=== PATIENT | male | born 1995 | race Caucasian/White ===

== ENCOUNTER 2017-03-12 10:16 | Emergency (ER) | payer BC, OTHER ==
[~2017-03-12] VITALS: Ht 177.8 cm; Wt 85.0 kg
[~2017-03-12 10:16] MED LIST: AMOX250C3 PO; BUPR-79 PO; DOXY100C76 PO; ESCI10TA17 PO
[2017-03-12 10:20] VITALS: TEMP 36.6; Ht 177.8 cm; Wt 85.0 kg
[2017-03-12] MEDS ORDERED: MINO75CA2 PO (10:51)
[2017-03-12] MEDS ORDERED: SODIUM CHLORIDE 0.9% 1000ML 1,000 ML IV STA (11:09)
--- NOTE | 2017-03-12 11:18 | DIAGNOSTIC IMAGING REPORT ---
CHEST ONE VIEW PORTABLE CLINICAL HISTORY: Hematemesis. COMPARISON STUDY: Chest radiograph July 21, 2015. FINDINGS: Lung volumes are normal. No pneumothorax or pleural effusion is present. There is no evidence of pneumomediastinum. Cardiomediastinal silhouette is normal. Lungs are clear. There is no evidence of pulmonary edema. IMPRESSION: No acute cardiopulmonary findings. Electronically signed by: Jameson Olea M.D. 03/12/2017 11:16 AM Dictated Date/Time: 03/12/2017 11:15 AM
[2017-03-12 11:32] LABS: BASO % 0.6 %; BASO ABS # 0.04 K/uL (0-0.2); COMPLETE YES; EOS % 2.2 %; IG% 0.9 %; LYMPH % 28.3 %; LYMPH ABS # 1.79 K/uL (1.2-3.4); MEAN CELL VOLUME 87.9 fL (80-100); MEAN CORPUSCULAR HEMOGLOBIN 28.9 pg (25-34); MEAN CORPUSCULAR HGB CONC 32.9 g/dl (32-36); MEAN PLATELET VOLUME 10.4 fL (7.4-10.4); MONO % 6.3 %; NEUT % 61.7 %; PLATELET COUNT 256 K/uL (130-400); RED BLOOD COUNT 5.12 M/uL (4.7-6.1); WHITE BLOOD COUNT 6.32 K/uL (4.8-10.8)
[2017-03-12 11:49] LABS: CALCIUM 9.1 mg/dl (8.5-10.1); CREATININE 0.79 mg/dl (0.60-1.40)
[2017-03-12 11:52] LABS: ALB/GLOB RATIO 1.2 (0.9-2)
[2017-03-12] MEDS ORDERED: OMEP40CA41 PO (13:05)
--- NOTE | 2017-03-12 13:06 | EMERGENCY ROOM VISIT NOTE ---
History First contact with patient: 10:26 Chief Complaint: ABDOMINAL PAIN Stated Complaint: ABD PAIN WHEN CONSUMING ALCOHOL,DIZZY,VOMIT BLOOD Nursing Triage Summary: pt reports "I was drinking last night and after I threw up there was blood streaks in it". Pt reports I have had pain in my stomache after drinking X 1 year and it goes away pretty quickly" History of Present Illness The patient is a 22 year old male who presents to the Emergency Room with complaints of blood-streaked vomit last night. The patient states that he had 3 -4 shots of vodka last night. He reports he then developed some periumbilical abdominal pain. The patient made himself vomit and states that the vomit was streaked with a small amount of bright red blood. He has had no vomiting since then. He has had no hemoptysis. The patient states that typically when he drinks alcohol, he does develop some abdominal discomfort which goes away on its own. He denies any similar symptoms with other foods. He does state he has felt slightly lightheaded over the past week. He denies any history of abdominal issues or abdominal surgery. He denies any complaints at this time. Review of Systems A complete 10 point review of systems was reviewed with the patient with pertinent positives and negatives as per history of present illness. All else were negative. Social History Smoking Status: Never Smoker Alcohol Use: occasionally Drug Use: none Marital Status: single Housing Status: lives alone Occupation Status: [employer] student Current/Historical Medications Scheduled Bupropion (Wellbutrin Sr), 150 MG PO DAILY Escitalopram (Lexapro), 30 MG PO DAILY Minocycline (Minocin), Unknown Dose PO DAILY Omeprazole (Prilosec), 40 MG PO DAILY Physical Exam Vital Signs Date Time Temp Pulse Resp B/P (MAP) Pulse Ox O2 Delivery O2 Flow Rate FiO2 03/12/17 13:25 68 15 131/79 98 03/12/17 11:33 71 15 139/67 100 03/12/17 11:33 68 20 109/60 98 70 135/66 70 139/67 03/12/17 10:20 36.6 77 18 127/59 100 Room Air Physical Exam VITALS: Vitals are noted on the nurse's note and reviewed by myself. Vital signs stable. GENERAL: This is a 22-year-old male, in no acute distress, nondiaphoretic, well- developed well-nourished. SKIN: The skin was without rashes, erythema, edema, or bruising. EARS: External auditory canals clear, tympanic membranes pearly amlhotra without erythema or effusion bilaterally. EYES: Pupils equal round and reactive to light and accommodation. Conjunctivae without injection, sclerae without icterus. MOUTH: Mucous membranes moist. Tonsils are not enlarged. Posterior oropharynx is minimally injected. NECK: Supple without nuchal rigidity. No lymphadenopathy. HEART: Regular rate and rhythm without murmurs gallops or rubs. LUNGS: Clear to auscultation bilaterally without wheezes, rales or rhonchi. ABDOMEN: Positive bowel sounds x 4. Soft, nontender, without masses or organomegaly. NEURO: Patient was alert and oriented to person place and time. Medical Decision & Procedures ER Provider Diagnostic Interpretation: CHEST ONE VIEW PORTABLE CLINICAL HISTORY: Hematemesis. COMPARISON STUDY: Chest radiograph July 21, 2015. FINDINGS: Lung volumes are normal. No pneumothorax or pleural effusion is present. There is no evidence of pneumomediastinum. Cardiomediastinal silhouette is normal. Lungs are clear. There is no evidence of pulmonary edema. IMPRESSION: No acute cardiopulmonary findings. Laboratory Results 03/12/17 11:22 Red Blood Count 5.12, Mean Corpuscular Volume 87.9, Mean Corpuscular Hemoglobin 28.9, Mean Corpuscular Hemoglobin Concent 32.9, Mean Platelet Volume 10.4, Neutrophils (%) (Auto) 61.7, Lymphocytes (%) (Auto) 28.3, Monocytes (%) (Auto) 6.3, Eosinophils (%) (Auto) 2.2, Basophils (%) (Auto) 0.6, Neutrophils # (Auto) 3.89, Lymphocytes # (Auto) 1.79, Monocytes # (Auto) 0.40, Eosinophils # (Auto) 0.14, Basophils # (Auto) 0.04 03/12/17 11:22 Test 03/12/17 11:22 White Blood Count 6.32 K/uL (4.8-10.8) Red Blood Count 5.12 M/uL (4.7-6.1) Hemoglobin 14.8 g/dL (14.0-18.0) Hematocrit 45.0 % (42-52) Mean Corpuscular Volume 87.9 fL (80-100) Mean Corpuscular Hemoglobin 28.9 pg (25-34) Mean Corpuscular Hemoglobin Concent 32.9 g/dl (32-36) Platelet Count 256 K/uL (130-400) Mean Platelet Volume 10.4 fL (7.4-10.4) Neutrophils (%) (Auto) 61.7 % Lymphocytes (%) (Auto) 28.3 % Monocytes (%) (Auto) 6.3 % Eosinophils (%) (Auto) 2.2 % Basophils (%) (Auto) 0.6 % Neutrophils # (Auto) 3.89 K/uL (1.4-6.5) Lymphocytes # (Auto) 1.79 K/uL (1.2-3.4) Monocytes # (Auto) 0.40 K/uL (0.11-0.59) Eosinophils # (Auto) 0.14 K/uL (0-0.5) Basophils # (Auto) 0.04 K/uL (0-0.2) RDW Standard Deviation 40.8 fL (36.4-46.3) RDW Coefficient of Variation 12.7 % (11.5-14.5) Immature Granulocyte % (Auto) 0.9 % Immature Granulocyte # (Auto) 0.06 K/uL (0.00-0.02) Anion Gap 3.0 mmol/L (3-11) Est Creatinine Clear Calc Drug Dose 152.7 ml/min Estimated GFR () 148.8 Estimated GFR (Non- 128.4 BUN/Creatinine Ratio 23.0 (10-20) Calcium Level 9.1 mg/dl (8.5-10.1) Total Bilirubin 0.3 mg/dl (0.2-1) Aspartate Amino Transf (AST/SGOT) 16 U/L (15-37) Alanine Aminotransferase (ALT/SGPT) 21 U/L (12-78) Alkaline Phosphatase 58 U/L (45-117) Total Protein 7.4 gm/dl (6.4-8.2) Albumin 4.0 gm/dl (3.4-5.0) Globulin 3.4 gm/dl (2.5-4.0) Albumin/Globulin Ratio 1.2 (0.9-2) Lipase 112 U/L (73-393) Medications Administered Medications (Trade) Dose Ordered Sig/Renee Route Start Time Stop Time Status Last Admin Dose Admin Sodium Chloride 1,000 ml @ 999 mls/hr Q1H1M STAT IV 03/12/17 11:09 03/12/17 12:09 DC 03/12/17 11:37 999 MLS/HR Medical Decision Differential diagnosis includes Iraida-Calvert tear, Boerhaave syndrome, gastritis, gastroenteritis, appendicitis, cholecystitis, among others. Patient was evaluated as above. He is very well-appearing at this time and has no complaints. He presents due to a small amount of blood in his vomit last night. He has had no further vomiting or nausea since then. The patient also concerned because he states that every time he drinks alcohol, he develops abdominal pain. Chest x-ray and labs today were unremarkable. There is no leukocytosis or anemia. The patient has no abdominal tenderness on exam. I did recommend that he stop or decrease his alcohol use. He was recommended to start a Prilosec and follow-up with [facility] for further evaluation. The patient was agreeable to this. He verbalized understanding of my assessment and treatment plan and was discharged home in good condition. Medication Reconcilliation Current Medication List: was personally reviewed by me Blood Pressure Screening Patient's blood pressure: Normal blood pressure Impression Primary Impression: Vomiting Departure Information Dispostion Home / Self-Care Condition GOOD Prescriptions Omeprazole (PRILOSEC) 40 Mg Cap 40 MG PO DAILY for 14 Days, #14 CAP Prov: Ute Chavez .KEITH 03/12/17 Referrals No Doctor, Assigned (PCP) Patient Instructions [facility] Additional Instructions Take the prilosec as prescribed. Rest and plenty of fluids. Follow-up with [facility] or your own primary care provider for further evaluation next week. Return to the emergency department with any worsening pain, worsening vomiting, recurrent blood in the vomit or any other new/concerning symptoms.
[2017-03-12 13:25] VITALS: BP 131/79; PULSE 68; O2SAT 98
== END 2017-03-12 13:38 | disposition home or self-care (01) ==
LOC: C.EDB 10:19 → C.EDA 13:38
DX: K92.0 Hematemesis (principal); R10.33 Periumbilical pain

== ENCOUNTER 2018-01-23 02:53 | Emergency (ER) | payer BC ==
[~2018-01-23] VITALS: Ht 177.8 cm; Wt 83.4 kg
[~2018-01-23 02:53] MED LIST changes: -AMOX250C3 PO; -DOXY100C76 PO; +MINO75CA2 PO
[2018-01-23 02:55] VITALS: Ht 177.8 cm; Wt 83.4 kg
[2018-01-23] MEDS ORDERED: LIDOCAINE/EPINEPH/TETRACAINE 1 EA SYR ONE (03:22)
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
[2018-01-23 04:58] VITALS: BP 101/52; PULSE 88; TEMP 36.8; O2SAT 98
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
== END 2018-01-23 04:58 | disposition home or self-care (01) ==
LOC: EDBD 02:53 → C.EDC 02:54
DX: S01.81XA Laceration without foreign body of other part of head, initial encounter (principal); Y04.0XXA Assault by unarmed brawl or fight, initial encounter; Z79.899 Other long term (current) drug therapy